=== PATIENT | male | born 1965 | race Caucasian/White ===

== ENCOUNTER → 2016-05-24 | Outpatient (CLI) | payer BC ==
[~2016-05-24] MED LIST: ALTA1.256 PO; CARV6.25 PO; DIGO.25 PO; DOFE250 PO; RIVA20 PO
--- NOTE | 2016-05-25 17:31 | HM ---
Date Performed: 05/24/2016 Time Performed: 09:19:00 HOOKUP DATE: 05/24/16 09:19:00 AM [facility] ANALYSIS START TIME: 05/24/2016 9:24:00 AM ANALYSIS END TIME: 05/25/2016 7:15:48 AM PATIENT AGE: 51 PATIENT HEIGHT PATIENT WEIGHT DRUG LIST PATIENT DIAGNOSIS: paroxysmal afib TEST NARRATIVE: The patient's average heart rate was 59 BPM. No episodes of tachycardia wer e noted. Heart rates less than 50 BPM were noted 10% of the time. No pauses exceeding 2.0 second s were noted. 273 ventricular ectopics, which represented < 1% of the total beat count, were note d. The highest ventricular ectopic frequency occurred from 03:00 AM to 04:00 AM Fri. During this ti me 72 VE(s) occurred. Ventricular ectopics were observed as 273 isolated beat(s) only. No couplets or runs were noted. Some of the ventricular beats occurred in bigeminal cycles. 3 supraventricul ar ectopics, which represented < 1% of the total beat count, were noted. The highest supraventricula r ectopic frequency occurred from 06:00 AM to 07:00 AM Fri. During this time 2 SVE(s) occurred. No episodes of ST depression (defined as -1.0 mm or more) were noted in channel 1. No episodes of ST depression (defined as -1.0 mm or more) were noted in channel 2. No episodes of ST depression (defi estefani as -1.0 mm or more) were noted in channel 3. NO SYMPTOMS PER PATIENT, DIARY NOT RETURNED TEST INTERPRETATION: After no symptoms, no diary Predominant rhythm was sinus. Conclusion: norm al holter monitor. Signed by : Leatha Rios
== END ==
LOC: HCAV 08:41
PROVIDERS: ATTEND Internal Medicine Interventional Cardiology
DX: I48.0 Paroxysmal atrial fibrillation (principal)
CPT/HCPCS: 93225; 93226